=== PATIENT | female | born 1950 | race Caucasian/White ===

== ENCOUNTER 2017-04-23 19:23 | Emergency (ER) | payer OTHER ==
[~2017-04-23] VITALS: Ht 160 cm; Wt 57.0 kg
[~2017-04-23 19:23] MED LIST: FAMV250T PO; LORT5TAB PO
[2017-04-23 19:43] VITALS: BP 138/70; PULSE 90; TEMP 98.2; O2SAT 95
[2017-04-23] MEDS ORDERED: SODIUM CHLORIDE 0.9% FLUSH 10 ML FLUSH IVF PRN (20:00)
[2017-04-23] MEDS ORDERED: SODIUM CHLOR 0.9% 1000 ML INJ 1,000 ML IV ONE (20:00)
--- NOTE | 2017-04-23 20:04 | PD ---
HPI Chief Complaint: Cold / Flu Symptoms Time Seen by Provider: 19:53 Travel History International Travel<30 days: No Contact w/Intl Traveler<30days: No Traveled to known affect area: No History of Present Illness HPI Patient is 66-year-old female who presents to emergency room with complaints of URI. Patient reports that for the past week, she's had increased sinus congestion, sore throat, cough. Patient reports that her body has been feeling achy, denies any fevers or chills. Patient reports that she did not get the influenza vaccine this year, reports that she is feeling nauseous with no episodes of vomiting or diarrhea. Patient also reports that she is on Coumadin as she has history of CVAs, patient had her INR checked on Friday, reports the INR was 6.5. Patient did hold 2 days of her Coumadin, patient is also here for an INR recheck. Patient with no chest pain or shortness of breath at this time , patient with no abdominal pain, patient with no other complaints. PFSH Past Medical History Hx Anticoagulant Therapy: Yes (COUMADIN) Arthritis: Yes Anxiety: Yes Cardiovascular Problems: Yes Cerebrovascular Accident: Yes (2006) Insomnia: Yes Musculoskeletal: Yes Neurologic: Yes Past Surgical History Surgical History: No Previous Surgery Social History Alcohol Use: No Tobacco Use: No (patient quit smoking 3 months ago ) Substance Use: No Allergies-Medications (Allergen,Severity, Reaction): Coded Allergies: No Known Allergies (Verified , 02/23/07) Reported Meds & Prescriptions Reported Meds & Active Scripts Active Augmentin (Amoxicillin-Clavulanate) 875-125 Mg Tab 1 Tab PO BID 10 Days Reported Tylenol (Acetaminophen) 325 Mg Tab 325 Mg PO Q4H PRN Warfarin 1 Mg Tab 0.5 Mg PO FRIDAY Warfarin 1 Mg Tab 1 Mg PO DAILY Simvastatin 40 Mg Tab 40 Mg PO HS Pantoprazole (Pantoprazole Sodium) 40 Mg Tab 40 Mg PO DAILY Trazodone (Trazodone HCl) 50 Mg Tab 50 Mg PO HS Lorazepam 1 Mg Tab 1 Mg PO BID PRN Lexapro (Escitalopram Oxalate) 20 Mg Tab 20 Mg PO DAILY Cymbalta DR (Duloxetine HCl) 60 Mg Capdr 60 Mg PO DAILY Synthroid (Levothyroxine Sodium) 25 Mcg Tab 25 Mcg PO DAILY Review of Systems General / Constitutional: No: Fever, Chills Eyes: No: Visual changes HENT: Positive: Sore Throat, No: Headaches Cardiovascular: No: Chest Pain or Discomfort Respiratory: Positive: Cough, No: Shortness of Breath Gastrointestinal: Positive: Nausea, Vomiting, No: Diarrhea, Abdominal Pain, Constipation Genitourinary: No: Dysuria Musculoskeletal: Positive: Myalgias, No: Pain Skin: No Rash Neurologic: No: Weakness Psychiatric: No: Depression Endocrine: No: Polydipsia Hematologic/Lymphatic: No: Easy Bruising Physical Exam Narrative GENERAL: NAD SKIN: Focused skin assessment warm/dry. HEAD: Atraumatic. Normocephalic. EYES: Pupils equal and round. No scleral icterus. No injection or drainage. ENT: No nasal bleeding or discharge. Mucous membranes pink and moist. Patient with erythema to posterior pharynx with no pustules NECK: Trachea midline. No JVD. CARDIOVASCULAR: Regular rate and rhythm. No murmur appreciated. RESPIRATORY: No accessory muscle use. Clear to auscultation. Breath sounds equal bilaterally. GASTROINTESTINAL: Abdomen soft, non-tender, nondistended. Hepatic and splenic margins not palpable. MUSCULOSKELETAL: No obvious deformities. No clubbing. No cyanosis. No edema. NEUROLOGICAL: Awake and alert. No obvious cranial nerve deficits. Motor grossly within normal limits. Normal speech. PSYCHIATRIC: Appropriate mood and affect; insight and judgment normal. Data Data Last Documented VS Vital Signs Date Time Temp Pulse Resp B/P (MAP) Pulse Ox O2 Delivery O2 Flow Rate FiO2 04/23/17 21:01 96 20 100 Room Air 04/23/17 21:01 98.3 135/66 (89) Orders Orders Complete Blood Count With Diff (04/23/17 19:53) Comprehensive Metabolic Panel (04/23/17 19:53) Group A Rapid Strep Screen (04/23/17 19:53) Influenzae A/B Antigen (04/23/17 19:53) Chest, Single Ap (04/23/17 19:53) Ecg Monitoring (04/23/17 19:53) Iv Access Insert/Monitor (04/23/17 19:53) Oximetry (04/23/17 19:53) Sodium Chloride 0.9% Flush (Ns Flush) (04/23/17 20:00) Prothrombin Time / Inr (Pt) (04/23/17 19:53) Act Partial Throm Time (Ptt) (04/23/17 19:53) Sodium Chlor 0.9% 1000 Ml Inj (Ns 1000 M (04/23/17 20:00) Methylprednisolone So Succ Inj (Solumedr (04/23/17 20:15) Ketorolac Inj (Toradol Inj) (04/23/17 20:15) Strep Culture (Group A) (04/23/17 20:30) Amoxicil-Clavulanate (Augmentin) (04/23/17 21:45) Labs Laboratory Tests Test 04/23/17 20:30 White Blood Count 7.4 TH/MM3 Red Blood Count 3.74 MIL/MM3 Hemoglobin 12.1 GM/DL Hematocrit 36.6 % Mean Corpuscular Volume 97.9 FL Mean Corpuscular Hemoglobin 32.4 PG Mean Corpuscular Hemoglobin Concent 33.1 % Red Cell Distribution Width 13.6 % Platelet Count 330 TH/MM3 Mean Platelet Volume 6.4 FL Neutrophils (%) (Auto) 55.7 % Lymphocytes (%) (Auto) 28.5 % Monocytes (%) (Auto) 9.4 % Eosinophils (%) (Auto) 5.5 % Basophils (%) (Auto) 0.9 % Neutrophils # (Auto) 4.1 TH/MM3 Lymphocytes # (Auto) 2.1 TH/MM3 Monocytes # (Auto) 0.7 TH/MM3 Eosinophils # (Auto) 0.4 TH/MM3 Basophils # (Auto) 0.1 TH/MM3 CBC Comment DIFF FINAL Differential Comment Prothrombin Time 48.6 SEC Prothromb Time International Ratio 4.1 RATIO Activated Partial Thromboplast Time 65.8 SEC Blood Urea Nitrogen 13 MG/DL Creatinine 1.10 MG/DL Random Glucose 82 MG/DL Total Protein 6.8 GM/DL Albumin 3.0 GM/DL Calcium Level 8.4 MG/DL Alkaline Phosphatase 174 U/L Aspartate Amino Transf (AST/SGOT) 20 U/L Alanine Aminotransferase (ALT/SGPT) 20 U/L Total Bilirubin LESS THAN 0.1 MG/DL Sodium Level 139 MEQ/L Potassium Level 3.9 MEQ/L Chloride Level 107 MEQ/L Carbon Dioxide Level 25.0 MEQ/L Anion Gap 7 MEQ/L Estimat Glomerular Filtration Rate 50 ML/MIN MDM Medical Decision Making Medical Screen Exam Complete: Yes Emergency Medical Condition: Yes Medical Record Reviewed: Yes Interpretation(s) Vital Signs Date Time Temp Pulse Resp B/P (MAP) Pulse Ox O2 Delivery O2 Flow Rate FiO2 04/23/17 19:43 98.2 90 138/70 (92) 95 Laboratory Tests Test 04/23/17 20:30 White Blood Count 7.4 TH/MM3 (4.0-11.0) Red Blood Count 3.74 MIL/MM3 (4.00-5.30) Hemoglobin 12.1 GM/DL (11.6-15.3) Hematocrit 36.6 % (35.0-46.0) Mean Corpuscular Volume 97.9 FL (80.0-100.0) Mean Corpuscular Hemoglobin 32.4 PG (27.0-34.0) Mean Corpuscular Hemoglobin Concent 33.1 % (32.0-36.0) Red Cell Distribution Width 13.6 % (11.6-17.2) Platelet Count 330 TH/MM3 (150-450) Mean Platelet Volume 6.4 FL (7.0-11.0) Neutrophils (%) (Auto) 55.7 % (16.0-70.0) Lymphocytes (%) (Auto) 28.5 % (9.0-44.0) Monocytes (%) (Auto) 9.4 % (0.0-8.0) Eosinophils (%) (Auto) 5.5 % (0.0-4.0) Basophils (%) (Auto) 0.9 % (0.0-2.0) Neutrophils # (Auto) 4.1 TH/MM3 (1.8-7.7) Lymphocytes # (Auto) 2.1 TH/MM3 (1.0-4.8) Monocytes # (Auto) 0.7 TH/MM3 (0-0.9) Eosinophils # (Auto) 0.4 TH/MM3 (0-0.4) Basophils # (Auto) 0.1 TH/MM3 (0-0.2) CBC Comment DIFF FINAL Differential Comment Prothrombin Time 48.6 SEC (9.8-11.6) Prothromb Time International Ratio 4.1 RATIO Activated Partial Thromboplast Time 65.8 SEC (24.3-30.1) Blood Urea Nitrogen 13 MG/DL (7-18) Creatinine 1.10 MG/DL (0.50-1.00) Random Glucose 82 MG/DL (74-106) Total Protein 6.8 GM/DL (6.4-8.2) Albumin 3.0 GM/DL (3.4-5.0) Calcium Level 8.4 MG/DL (8.5-10.1) Alkaline Phosphatase 174 U/L (45-117) Aspartate Amino Transf (AST/SGOT) 20 U/L (15-37) Alanine Aminotransferase (ALT/SGPT) 20 U/L (10-53) Total Bilirubin LESS THAN 0.1 MG/DL Sodium Level 139 MEQ/L (136-145) Potassium Level 3.9 MEQ/L (3.5-5.1) Chloride Level 107 MEQ/L (98-107) Carbon Dioxide Level 25.0 MEQ/L (21.0-32.0) Anion Gap 7 MEQ/L (5-15) Estimat Glomerular Filtration Rate 50 ML/MIN (>89) Differential Diagnosis Pneumonia, URI, influenza, Coumadin coagulopathy Narrative Course Patient is a 66-year-old female who presents to emergency room with complaints of URI for the past week. Patient reports no fevers or chills, reports cough and congestion, patient also concerned as her INR was 6.5 on Friday, she is on Coumadin as she does have history of CVAs in the past. During the course of the patients emergency department visit, the patients history, examination, and differential diagnosis were reviewed with the patient. The patient was placed on a professor of management with oximetry and frequent blood pressure monitoring. The patient had 20 guage IV access obtained and blood work sent for analysis. The patient was initially provided IVF as well as IV toradol and IV solumedrol The patients laboratory studies were reviewed and remarkable for: CBC & BMP Diagram 04/23/17 20:30 Total Protein 6.8, Albumin 3.0 L, Calcium Level 8.4 L, Alkaline Phosphatase 174 H, Aspartate Amino Transf (AST/SGOT) 20, Alanine Aminotransferase (ALT/SGPT) 20 , Total Bilirubin LESS THAN 0.1 L Radiology studies were reviewed and remarkable for no evidence of acute disease , there is no evidence of pneumonia on the chest x-ray. Influenza negative, rapid strep negative, patient with most likely viral syndrome, will treat as bronchitis and have her follow-up with her primary care doctor. Signs and symptoms of when to return to ER was reviewed with patient in detail. INR 4.1 patient will follow up with her primary care doctor on Friday for recheck of her INR at that time. She will hold her coumadin as instructed by her pcp. Patient happy with plan of care Diagnosis Primary Impression: Bronchitis Additional Impression: coumadin coagulopathy Patient Instructions: General Instructions Additional Instructions: Please provide patient with a copy of their lab work and studies at discharge* * Please follow up with your primary care doctor in 2-3 days Return to the ER if symptoms worsen or progress Return to the ER as needed Please take all medications as prescribed Med/Other Pt SpecificInfo: Prescription(s) given Scripts Amoxicillin-Clavulanate (Augmentin) 875-125 Mg Tab 1 TAB PO BID for Infection for 10 Days, #20 TAB 0 Refills Prov: Flor Floyd DO 04/23/17 Disposition: 01 DISCHARGE HOME Condition: Stable Flor Floyd DO Apr 23, 2017 20:04
--- NOTE | 2017-04-23 20:14 | RADRPT ---
EXAM DATE/TIME: 04/23/2017 20:07 [facility] COMPARISON: No previous studies available for comparison. INDICATIONS : Cough, flu-like symptoms for 3 days MEDICAL HISTORY : None. SURGICAL HISTORY : None. ENCOUNTER: Initial ACUITY: 3 days PAIN SCORE: 0/10 LOCATION: Bilateral chest FINDINGS: A single view of the chest demonstrates the lungs to be symmetrically aerated without evidence of mas s, infiltrate or effusion. The cardiomediastinal contours are unremarkable. Osseous structures are intact. CONCLUSION: No acute disease. There is no evidence of pneumonia. Terry Nance MD on April 23, 2017 at 20:12 Board Certified Radiologist. This report was verified electronically.
[2017-04-23] MEDS ORDERED: KETOROLAC TROMETHAMINE 30 MG/ML (IVP) VIAL IV PUSH ONE (20:15)
[2017-04-23] MEDS ORDERED: methylPREDNISolone SOD SUCC 125 MG/2 ML VIAL IV PUSH ONE (20:15)
[2017-04-23 20:45] LABS: AUTOMATED NEUTROPHIL # 4.1 TH/MM3 (1.8-7.7); BASOPHIL # 0.1 TH/MM3 (0-0.2); BASOPHIL % 0.9 % (0.0-2.0); EOSINOPHIL # 0.4 TH/MM3 (0-0.4); EOSINOPHIL % 5.5 % (0.0-4.0); HEMATOCRIT 36.6 % (35.0-46.0); HEMO FLAGS DIFF FINAL; LYMPH % 28.5 % (9.0-44.0); LYMPHOCYTE # 2.1 TH/MM3 (1.0-4.8); MEAN CELL VOLUME 97.9 FL (80.0-100.0); MEAN CORPUSCULAR HEMOGLOBIN 32.4 PG (27.0-34.0); MEAN CORPUSCULAR HGB CONC 33.1 % (32.0-36.0); MONO % 9.4 % (0.0-8.0); NEUT % 55.7 % (16.0-70.0); PLATELET COUNT 330 TH/MM3 (150-450); RED BLOOD COUNT 3.74 MIL/MM3 (4.00-5.30); RED CELL DISTRIBUTION WIDTH 13.6 % (11.6-17.2); WHITE BLOOD COUNT 7.4 TH/MM3 (4.0-11.0)
[2017-04-23 20:51] VITALS: BP 135/66; PULSE 73; RESP 20; O2SAT 97
[2017-04-23 20:55] LABS: CHLORIDE 107 MEQ/L (98-107); POTASSIUM 3.9 MEQ/L (3.5-5.1); SODIUM (NA) 139 MEQ/L (136-145)
[2017-04-23 20:59] LABS: ANION GAP 7 MEQ/L (5-15); BLOOD UREA NITROGEN 13 MG/DL (7-18)
[2017-04-23 21:01] VITALS: BP 135/66; PULSE 78; RESP 20; TEMP 98.3; O2SAT 99
[2017-04-23 21:02] LABS: ALT (GPT) 20 U/L (10-53); AST (GOT) 20 U/L (15-37); GLOMERULAR FILTRATION RATE 50 ML/MIN (>89)
[2017-04-23 21:04] LABS: TOTAL BILIRUBIN ADULT LESS THAN 0.1 MG/DL (0.2-1.0)
[2017-04-23 21:05] LABS: ALKALINE PHOSPHATASE 174 U/L (45-117)
[2017-04-23] MEDS ORDERED: PANT40TA3 PO (21:12)
[2017-04-23] MEDS ORDERED: SYNT25TA PO (21:12)
[2017-04-23] MEDS ORDERED: TRAZ50TA12 PO (21:12)
[2017-04-23] MEDS ORDERED: LEXA20TA PO (21:12)
[2017-04-23] MEDS ORDERED: SIMV40TA PO (21:12)
[2017-04-23] MEDS ORDERED: LORA1TAB12 PO (21:12)
[2017-04-23] MEDS ORDERED: WARF4TAB52 PO ×2 (21:12)
[2017-04-23] MEDS ORDERED: CYMB60CA PO (21:12)
[2017-04-23] MEDS ORDERED: TYLE325T PO (21:14)
[2017-04-23 21:25] LABS: APTT (PATIENT) 65.8 SEC (24.3-30.1); INTERNATIONAL NORMALIZED RATIO 4.1 RATIO; PROTHROMBIN TIME - PATIENT 48.6 SEC (9.8-11.6)
[2017-04-23] MEDS ORDERED: AUGM875T3 PO (21:43)
[2017-04-23] MEDS ORDERED: AMOXICILLIN/CLAVULANATE K 875 MG TAB PO ONE (21:45)
[2017-04-23 22:09] VITALS: BP 128/74
== END 2017-04-23 22:11 | disposition home or self-care (01) ==
LOC: PHED 19:23
DX: J40 Bronchitis, not specified as acute or chronic (principal); R79.1 Abnormal coagulation profile; T45.515A Adverse effect of anticoagulants, initial encounter; Z87.891 Personal history of nicotine dependence
CPT/HCPCS: 71010; 80053; 85025; 85610; 85730; 87081; 87804; 87880; 96361; 96374; 96375; 99284; J1885; J2930; J7030